=== PATIENT | female | born 1940 | race Two or more races ===

== ENCOUNTER 2016-03-06 09:37 | Outpatient (RCR) | payer MEDICARE, OTHER | END 2016-03-07 | disposition home or self-care (01) | LOC: WCC 09:37 | DX: L97.822 Non-pressure chronic ulcer of other part of left lower leg with fat layer exposed (principal); L97.821 Non-pressure chronic ulcer of other part of left lower leg limited to breakdown of skin; E11.622 Type 2 diabetes mellitus with other skin ulcer; I10 Essential (primary) hypertension; I48.91 Unspecified atrial fibrillation; M19.90 Unspecified osteoarthritis, unspecified site; Z88.6 Allergy status to analgesic agent; Z88.2 Allergy status to sulfonamides | CPT/HCPCS: 11042; 11047 ==

== ENCOUNTER → 2016-03-06 | Outpatient (CLI) | payer MEDICARE, OTHER ==
--- NOTE | 2016-03-07 14:19 | Diagnostic Imaging Report ---
APPROVED REPORT CPT Code: 21531 Present Symptoms Lower Extremity Edema: Bilateral Comments: Non healing wounds bilateral legs BILATERAL: Imaging reveals a patent deep venous system bilaterally. There is no evidence of thrombus within the femoral, popliteal or distal tibial segments. The greater saphenous veins are also within normal limits. Doppler indicates normal spontaneous flow within these segments. Mid segments of tibial veins were not well visualized due to edema.
--- NOTE | 2016-03-07 14:19 | Diagnostic Imaging Report ---
APPROVED REPORT CPT Code: 23347 Symptoms Non-healing Ulcer : Bilaterally Comments: Pain BILATERAL: Common femoral artery waveform analysis is within normal limits at rest. Color flow duplex sonography reveals patency of the superficial femoral, popliteal, and distal tibial arteries, there is no evidence of stenosis or occlusion within these segments. Doppler tibial artery waveform analysis is within normal limits, bilaterally. The mid segment of tibial arteries were not well visualized. There is no evidence of significant arterial occlusive disease, bilaterally.
== END | disposition home or self-care (01) ==
LOC: VAS 10:50
DX: R60.0 Localized edema (principal)
CPT/HCPCS: 93925; 93970

== ENCOUNTER 2016-03-13 10:02 | Outpatient (RCR) | payer MEDICARE, OTHER | END 2016-04-04 | disposition home or self-care (01) | LOC: WCC 10:02 | DX: L97.822 Non-pressure chronic ulcer of other part of left lower leg with fat layer exposed (principal); L97.821 Non-pressure chronic ulcer of other part of left lower leg limited to breakdown of skin; E11.622 Type 2 diabetes mellitus with other skin ulcer; Z88.6 Allergy status to analgesic agent; Z88.2 Allergy status to sulfonamides | CPT/HCPCS: 11042; G0463 ==

== ENCOUNTER → 2016-03-13 | Outpatient (CLI) | payer MEDICARE, OTHER ==
--- NOTE | 2016-03-15 16:14 | Diagnostic Imaging Report ---
APPROVED REPORT CPT Code: 62364 Present Symptoms Lower Extremity Pain: Bilateral Lower Extremity Edema: Bilateral Comments: Hx of Left foot ulcer Evaluate for venous reflux Bilateral deep and superficial venous system is evaluated for venous reflux study. There is an evidence of venous reflux within the deep and superficial venous system. The reflux saphenous and small saphenous veins. Bilateral deep and superficial venous system are patent, no evidence of acute venous thrombosis.
== END | disposition home or self-care (01) ==
LOC: VAS 11:00
DX: I87.2 Venous insufficiency (chronic) (peripheral) (principal)
CPT/HCPCS: 93970